=== PATIENT | female | born 2000 ===

== ENCOUNTER 2020-12-03 05:14 | Inpatient (IN) | payer OTHER ==
[~2020-12-03] VITALS: Ht 157.5 cm; Wt 80.9 kg
[2020-12-03 05:48] VITALS: BP 119/63
[2020-12-03] MEDS ORDERED: FENTANYL PF 100 MCG/2ML IV PRN (06:00)
[2020-12-03] MEDS ORDERED: TERBUTALINE 1 MG/ML, 1ML SQ PRN (06:00)
[2020-12-03] MEDS ORDERED: OXYTOCIN 30U/ 0.9% NaCL 500ML 500 ML IV ONE (06:00)
[2020-12-03] MEDS ORDERED: MISOPROSTOL 25 MCG TABLET VG PRN (06:00)
[2020-12-03] MEDS ORDERED: D5%-LACTATED RINGERS 1,000 ML IV SCH (06:00)
[2020-12-03] MEDS ORDERED: ONDANSETRON 2MG/ML, 2ML IVPush PRN (06:00)
[2020-12-03] MEDS ORDERED: TERBUTALINE 1 MG/ML, 1ML IVPush PRN (06:00)
[2020-12-03] MEDS ORDERED: FENTANYL PF 100 MCG/2ML IVPush PRN (06:00)
[2020-12-03] MEDS ORDERED: CALCIUM CARBONATE 500 MG TAB.CHEW PO PRN (06:00)
[2020-12-03] MEDS: LACTATED RINGERS 1,000 ML IV SCH ×4 (06:09→14:00)
[2020-12-03 06:12] LABS: BASOPHILS % (AUTO) 1 % (0-1); EOSINOPHILS % (AUTO) 2 % (1-7); LYMPHOCYTES % (AUTO) 17 % (22-44); MEAN CORPUSCULAR HEMOGLOBIN 32.7 pg (27.0-34.8); MEAN CORPUSCULAR HGB CONC 34.5 g/dL (32.4-35.8); MEAN PLATELET VOLUME 8.8 fL (7.4-10.4); MONOCYTES % (AUTO) 8 % (2-9); NEUTROPHILS % (AUTO) 72 % (42-75); PLATELET COUNT 208 x10^3/uL (130-400); RED BLOOD COUNT 3.95 x10^6/uL (3.82-5.3); RED CELL DISTRIBUTION WIDTH 13.3 % (9.6-15.2)
[2020-12-03 06:15] LABS: MD NO
[2020-12-03] MEDS ORDERED: LACTATED RINGERS 1,000 ML IV SCH (11:00)
[2020-12-03] MEDS ORDERED: EPHEDRINE 50 MG/ML, 1ML IVPush PRN (11:00)
[2020-12-03] MEDS ORDERED: NALOXONE 0.4 MG/ML, 1ML IVPush PRN (11:00)
[2020-12-03] MEDS ORDERED: FENTANYL/BUPIV./NS/PF 250 ML EPIDCONT SCH (11:00)
[2020-12-03] MEDS ORDERED: LACTATED RINGERS 1,000 ML IVBOLUS PRN (11:00)
[2020-12-03] MEDS ORDERED: OXYTOCIN 30U/ 0.9% NaCL 500ML 500 ML ONE (11:11)
[2020-12-03] MEDS ORDERED: BUPIVACAINE 0.25% ONE (12:46)
[2020-12-03] MEDS ORDERED: MISOPROSTOL 200 MCG TABLET ONE (14:43)
[2020-12-03] MEDS ORDERED: LIDOCAINE 1%, 20ML ONE (14:43)
[2020-12-03] MEDS ORDERED: DIPHENHYDRAMINE 25 MG CAPSULE PO ONE (19:00)
[2020-12-03] MEDS ORDERED: DIPHENHYDRAMINE 25 MG CAPSULE ONE (19:01)
[2020-12-03 19:28] VITALS: BP 124/75
[2020-12-04] MEDS ORDERED: NEWBORN KIT ONE (01:11)
[2020-12-04] MEDS ORDERED: MISOPROSTOL 200 MCG TABLET PR PRN (01:30)
[2020-12-04] MEDS ORDERED: ONDANSETRON 2MG/ML, 2ML IV PRN (01:30)
[2020-12-04] MEDS ORDERED: SIMETHICONE 80 MG CHEW TAB PO PRN (01:30)
[2020-12-04] MEDS ORDERED: OXYTOCIN 30U/ 0.9% NaCL 500ML 500 ML IV SCH (01:30)
[2020-12-04] MEDS ORDERED: METHYLERGONOVINE 0.2 MG/ML IM PRN (01:30)
[2020-12-04] MEDS ORDERED: GLYCERIN ADULT SUPP PR PRN (01:30)
[2020-12-04] MEDS ORDERED: BISACODYL 10 MG SUPP PR PRN (01:30)
[2020-12-04 03:30] VITALS: BP 103/65
[2020-12-04] MEDS: IBUPROFEN 600 MG TABLET PO PRN ×3 (07:04→19:50)
[2020-12-04] MEDS: DOCUSATE 100 MG CAPSULE PO PRN ×2 (07:57→19:50)
[2020-12-04] MEDS: PRENATAL VIT/IRON/FA 1 EACH TABLET PO SCH (07:57)
[2020-12-04] MEDS: HYDROcodone/APAP 5/325 TABLET PO PRN ×3 (07:57→19:50)
[2020-12-04 08:00] VITALS: BP 106/67
[2020-12-04 09:24] LABS: BASOPHILS % (AUTO) 1 % (0-1); EOSINOPHILS % (AUTO) 0 % (1-7); LYMPHOCYTES % (AUTO) 8 % (22-44); MEAN CORPUSCULAR HEMOGLOBIN 32.8 pg (27.0-34.8); MEAN CORPUSCULAR HGB CONC 34.7 g/dL (32.4-35.8); MEAN PLATELET VOLUME 8.9 fL (7.4-10.4); MONOCYTES % (AUTO) 7 % (2-9); NEUTROPHILS % (AUTO) 84 % (42-75); PLATELET COUNT 194 x10^3/uL (130-400); RED CELL DISTRIBUTION WIDTH 13.2 % (9.6-15.2)
[2020-12-04 09:28] LABS: MD NO
[2020-12-04 15:50] VITALS: BP 97/46
[2020-12-04 20:40] VITALS: BP 111/75
[2020-12-05] MEDS: HYDROcodone/APAP 5/325 TABLET PO PRN ×2 (00:25→09:49)
[2020-12-05] MEDS: IBUPROFEN 600 MG TABLET PO PRN ×2 (02:41→09:49)
[2020-12-05 07:10] VITALS: BP 105/70
[2020-12-05] MEDS: PRENATAL VIT/IRON/FA 1 EACH TABLET PO SCH (09:00)
[2020-12-05] MEDS ORDERED: DIPH,PERTUSS(ACELL),TET VAC/PF NC IM-VACC ONE ×2 (12:42→13:00)
== END 2020-12-05 14:35 | disposition home or self-care (01) | DRG 807 ==
LOC: LDIP 05:14 → 2NW 12-04 02:56
PROVIDERS: ADMIT Obstetrics & Gynecology; ATTEND Obstetrics & Gynecology
PROC: 10E0XZZ Delivery of Products of Conception, External Approach (ICD-10-PCS; principal; 2020-12-04)
PROC: 0HQ9XZZ Repair Perineum Skin, External Approach (ICD-10-PCS; 2020-12-04)
PROC: 3E033VJ Introduction of Other Hormone into Peripheral Vein, Percutaneous Approach (ICD-10-PCS; 2020-12-04)
PROC: 3E0D7GC Introduction of Other Therapeutic Substance into Mouth and Pharynx, Via Natural or Artificial Opening (ICD-10-PCS; 2020-12-04)
PROC: 3E0R3BZ Introduction of Anesthetic Agent into Spinal Canal, Percutaneous Approach (ICD-10-PCS; 2020-12-04)
PROC: 00HU33Z Insertion of Infusion Device into Spinal Canal, Percutaneous Approach (ICD-10-PCS; 2020-12-04)
PROC: 3E0234Z Introduction of Serum, Toxoid and Vaccine into Muscle, Percutaneous Approach (ICD-10-PCS; 2020-12-05)
DX: O70.0 First degree perineal laceration during delivery (principal); Z37.0 Single live birth; Z3A.39 39 weeks gestation of pregnancy; Z23 Encounter for immunization; Z20.822 Contact with and (suspected) exposure to COVID-19
CPT/HCPCS: 36415; 85025; 86592; 86850; 86900; 87635; 90715; G0378; J2590; J7120; Q0163